=== PATIENT | male | born 1955 | race Caucasian/White ===

== ENCOUNTER 2016-11-20 12:27 | Emergency (ER) | payer OTHER ==
[~2016-11-20 12:27] MED LIST: ASPIRIN81 M1 PO; BACTRIM DS TABL1 TA1 PO; FLOMAX0.4 M1 PO; KEFLEX750 MG PO; LEVAQUIN750 MG PO; LISINOPRIL PO; MOBIC PO; MOBIC15 MG PO; NEURONTIN PO; NEURONTIN600 MG PO; NICOTINE TRANSD21 MG EXT; ONE DAILY FOR1 EACH PO; PAIN RELIEF325 MG PO; PERCOCET 10/3251 TAB PO; PERCOCET10 PO; RESTORIL15 MG PO; SOMA PO; TEMAZEPAM PO; TYLENOL325 M1 PO; VITAMIN D400 UNI2 PO; ZESTRIL40 MG PO; ZOCOR PO; ZYVOX600 MG PO
[2016-11-20] MEDS ORDERED: ASPIRIN (12:38)
[2016-11-20] MEDS ORDERED: NAPROXEN (12:39)
[2016-11-20] MEDS ORDERED: SOMA (12:39)
[2016-11-20] MEDS ORDERED: NEURONTIN (12:39)
[2016-11-20] MEDS ORDERED: ZOCOR (12:39)
[2016-11-20] MEDS ORDERED: OXYCODONE15 M1 (12:39)
[2016-11-20] MEDS ORDERED: TEMAZEPAM (12:39)
[2016-11-20] MEDS ORDERED: LISINOPRIL (12:39)
== END 2016-11-20 13:13 | disposition home or self-care (01) ==
LOC: SED 12:27
DX: S50.11XA Contusion of right forearm, initial encounter (principal); I10 Essential (primary) hypertension; E78.5 Hyperlipidemia, unspecified; F17.210 Nicotine dependence, cigarettes, uncomplicated; Z79.82 Long term (current) use of aspirin; Z90.49 Acquired absence of other specified parts of digestive tract; X58.XXXA Exposure to other specified factors, initial encounter; Y92.69 Other specified industrial and construction area as the place of occurrence of the external cause; Y99.0 Civilian activity done for income or pay
CPT/HCPCS: 99283